=== PATIENT | male | born 1945 | race Caucasian/White ===

== ENCOUNTER 2020-11-15 21:47 | Emergency (ER) | payer MEDICARE, OTHER ==
[2020-11-15] MEDS ORDERED: Alum Hydrox/Mag Hydrox/Simeth 15 ML, Lidocaine 2% 15 ML PO ONE ×2 (21:55)
--- NOTE | 2020-11-15 22:01 | EDM.PDOC ---
ED HPI GENERAL MEDICAL PROBLEM - General Chief Complaint: Chest Pain Stated Complaint: MEDICAL [employer] Time Seen by Provider: 11/15/20 21:54 Source of Information: Reports: Patient, EMS History Limitations: Reports: No Limitations - History of Present Illness INITIAL COMMENTS - FREE TEXT/NARRATIVE: This is a 75-year-old male presenting to the ED via [facility] for evaluation of epigastric and retrosternal chest pain. The patient symptoms started around 1800 hrs. tonight. The patient reported eating a breakfast burrito from [employer] this morning, did not eat lunch and did not feel well to eat supper. 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 He still has significant bruising on the right upper arm and lower chest anteriorly from this procedure. The patient denies any shortness of breath. He did take 4 baby aspirin chewed at home prior to calling EMS. Upon arrival of EMS they did a twelve-lead EKG finding him to be in a paced rhythm. They did give him 2 sprays of nitro spray without any change in his symptoms. The patient states that the pain is kind of a gnawing epigastric pain with some nausea. The patient has not had any vomiting. He denies any fever, chills, lost the taste or smell, cough or shortness of breath, back pain, jaw pain or arm pain. The patient did reportedly try to take a little bit of bourbon to soothe his symptoms and that did not taste or go down very well so then he tried a little snoot of whiskey which also did not sit very well. Mid-Sternal Chest Pain Score (Numeric/FACES): 4 - Related Data Allergies Allergy/AdvReac Type Severity Reaction Status Date / Time amlodipine [From [facility]] Allergy Edema Verified 11/15/20 22:24 doxycycline Allergy Hives Verified 11/15/20 22:24 iodine Allergy Cannot Verified 11/15/20 21:58 Remember lisinopril Allergy Cough Verified 11/15/20 22:24 shellfish derived Allergy Nausea and Verified 11/15/20 22:24 Vomiting Sulfa (Sulfonamide Allergy Shortness Verified 11/15/20 21:58 Antibiotics) of Breath Home Meds: Home Meds Acetaminophen [Tylenol Extra Strength] 1,000 mg PO BEDTIME PRN 11/15/20 [History] Albuterol [Ventolin HFA] 2 puff INH Q4H PRN 11/15/20 [History] Amoxicillin 500 mg PO BID 11/15/20 [History] Aspirin [Halfprin] 81 mg PO DAILY 11/15/20 [History] Cetirizine [ZyrTEC] 10 mg PO DAILY 11/15/20 [History] Fluticasone Propionate [Flonase] 1 spray SAFIA DAILY PRN 11/15/20 [History] Losartan [Cozaar] 150 mg PO DAILY 11/15/20 [History] Montelukast [Singulair] 10 mg PO DAILY 11/15/20 [History] Nitroglycerin [Nitrostat] 0.4 mg SL ASDIRECTED 11/15/20 [History] Nystatin [Nystatin Oint] 1 applic TP 5XDAY 11/15/20 [History] Pantoprazole 20 mg PO BEDTIME #7 tab. 11/15/20 [Rx] Rosuvastatin [Crestor] 20 mg PO DAILY 11/15/20 [History] Ticagrelor [Brilinta] 90 mg PO BID 11/15/20 [History] allopurinoL [Zyloprim] 300 mg PO DAILY 11/15/20 [History] carvediloL [Coreg] 50 mg PO BID 11/15/20 [History] diphenhydrAMINE [Benadryl] 50 mg PO ASDIRECTED 11/15/20 [History] hydroCHLOROthiazide [Hydrochlorothiazide] 25 mg PO DAILY 11/15/20 [History] metroNIDAZOLE [Metrocream] 1 applic TP BID 11/15/20 [History] predniSONE [Prednisone] 60 mg PO DAILY 11/15/20 [History] ED ROS GENERAL - Review of Systems Review Of Systems: See Below Constitutional: Reports: No Symptoms HEENT: Reports: No Symptoms Respiratory: Reports: No Symptoms Cardiovascular: Reports: Chest Pain (Retrosternal and epigastric) Endocrine: Reports: No Symptoms GI/Abdominal: Reports: Abdominal Pain (Epigastric pain), Nausea. Denies: Constipation, Diarrhea, Vomiting : Reports: No Symptoms Musculoskeletal: Reports: No Symptoms Skin: Reports: No Symptoms Neurological: Reports: No Symptoms Psychiatric: Reports: No Symptoms Hematologic/Lymphatic: Reports: No Symptoms Immunologic: Reports: No Symptoms ED EXAM, GENERAL - Physical Exam Exam: See Below Exam Limited By: No Limitations General Appearance: Alert, No Apparent Distress Eye Exam: Bilateral Eye: EOMI, PERRL Throat/Mouth: Normal Inspection, Normal Oropharynx, Normal Voice, No Airway Compromise Head: Atraumatic, Normocephalic Neck: Normal Inspection, Supple, Non-Tender, Full Range of Motion. No: Carotid Bruit Respiratory/Chest: No Respiratory Distress, Lungs Clear, Normal Breath Sounds, Other (Significant ecchymosis in the lower anterior chest likely from the recent pacemaker placement 4 weeks ago.) Cardiovascular: Normal Peripheral Pulses, Regular Rate, Rhythm Peripheral Pulses: 2+: Radial (L), Radial (R), Posterior Tibial (L), Posterior Tibial (R) GI/Abdominal: Normal Bowel Sounds, Soft, Non-Tender. No: Guarding, Rebound Extremities: Normal Inspection, Normal Range of Motion, No Pedal Edema Neurological: Alert, Oriented, Normal Cognition, No Motor/Sensory Deficits Psychiatric: Normal Affect, Normal Mood Skin Exam: Warm, Dry, Ecchymosis (Significant ecchymosis of the left upper inner arm also secondary to the placement of the pacemaker 4 weeks ago.) Lymphatic: No Adenopathy #1 Interpretation EKG Date: 11/15/20 Time: 22:02 Rhythm: NSR (Ander sensed ventricular paced rhythm) Rate (Beats/Min): 65 Comparison: NA - No Prior EKG Course - Vital Signs Last Recorded V/S: Last Vital Signs Temp 36.4 C 11/15/20 21:53 Pulse 62 11/15/20 21:53 Resp 17 11/15/20 22:42 BP 101/55 L 11/15/20 22:42 Pulse Ox 95 11/15/20 22:42 - Orders/Labs/Meds Orders: Active Orders 24 hr Category Date Time Status EKG 12 Lead [EK] Routine Ther 11/15/20 21:55 Ordered Labs: Laboratory Tests 11/15/20 11/15/20 11/15/20 Range/Units 22:07 22:07 22:07 WBC 7.7 (4.5-11.0) K/uL RBC 4.19 L (4.30-5.90) M/uL Hgb 14.0 (12.0-15.0) g/dL Hct 40.9 (40.0-54.0) % MCV 98 (80-98) fL MCH 33 H (27-31) pg MCHC 34 (32-36) % Plt Count 119 L (150-400) K/uL Neut % (Auto) 54.1 (36-66) % Lymph % (Auto) 31.3 (24-44) % [place] % (Auto) 11.5 H (2-6) % Eos % (Auto) 2.5 (2-4) % Baso % (Auto) 0.6 (0-1) % D-Dimer, Quantitative 1437.41 H (0.0-500.0) ng/mL Sodium 134 L (140-148) mmol/L Potassium 3.5 L (3.6-5.2) mmol/L Chloride 100 (100-108) mmol/L Carbon Dioxide 26 (21-32) mmol/L Anion Gap 11.5 (5.0-14.0) mmol/L BUN 22 H (7-18) mg/dL Creatinine 1.3 (0.8-1.3) mg/dL Est Cr Clr Drug Dosing 50.68 mL/min Estimated GFR (MDRD) 54 L (>60) Glucose 96 (74-106) mg/dL Calcium 9.4 (8.5-10.1) mg/dL Magnesium 2.1 (1.8-2.4) mg/dL Total Bilirubin 0.8 (0.2-1.0) mg/dL AST 26 (15-37) U/L ALT 28 (12-78) U/L Alkaline Phosphatase 88 (46-116) U/L Troponin I < 0.017 (0.000-0.056) ng/mL C-Reactive Protein 0.15 (0.0-0.3) mg/dL Total Protein 6.9 (6.4-8.2) g/dL Albumin 3.6 (3.4-5.0) g/dL Globulin 3.3 (2.3-3.5) g/dL Albumin/Globulin Ratio 1.1 L (1.2-2.2) Lipase 221 (73-393) U/L Meds: Medications Discontinued Medications Generic Name Dose Route Start Last Admin Trade Name Freq PRN Reason Stop Dose Admin Al Hydroxide/Mg Hydroxide 15 0 ml 11/15/20 21:55 11/15/20 22:02 ml/ Lidocaine HCl 15 ml PO 11/15/20 21:56 30 ml ONETIME ONE Administration - Re-Assessments/Exams Free Text/Narrative Re-Assessment/Exam: 11/15/20 22:43 I reviewed the patient's labs showing a normal CBC with a leukocyte count of 7.7, hemoglobin of 14.0, hematocrit of 40.9, and platelet count of 219,000. The patient's comprehensive metabolic panel is unremarkable except for a BUN of 22 with a creatinine 1.3. Magnesium is 2.1, AST and ALT are normal, lipase is also normal at 221. C-reactive protein is normal at 0.15. Troponin is negative at less than 0.017. Patient received a GI cocktail with resolution of his symptoms. Symptoms do seem more consistent with an acute gastritis possibly a gastroenteritis given his normal white count and the patient's symptoms of not feeling very well today. Certainly this does not appear to be cardiac even though he recently had stents placed 3 months ago and a pacemaker 1 month ago. I will put the patient on a proton pump inhibitor like omeprazole or pantoprazole for the next 7 days to see if this helps with his symptoms. I do feel comfortable letting him go home at this time. Indications to return to the ED were discussed. Departure - Departure Time of Disposition: 22:45 Disposition: Home, Self-Care 01 Clinical Impression: Acute gastritis without bleeding Qualifiers: Gastritis type: superficial Qualified Code(s): K29.00 - Acute gastritis without bleeding Instructions: Gastritis, Adult, [id number] Referrals: PCP,Unknown [Primary Care Provider] - Forms: ED Department Discharge Care Plan Goals: It appears her symptoms today were arising from irritation of the stomach. You may be developing a viral stomach flu given your lack of appetite today or irritation of the stomach. I am recommending that we start you on pantoprazole which is an acid handle bender for the stomach. You will take it once daily for the next 7 days. Reassuringly, the work-up today did not show any evidence of cardiac involvement causing your symptoms. Certainly if anything changes feel free to return for reevaluation. Sepsis Event Note (ED) - Evaluation Sepsis Screening Result: No Definite Risk - Focused Exam Vital Signs: Vital Signs Temp Pulse Resp BP Pulse Ox 11/15/20 22:42 17 101/55 L 95 11/15/20 21:53 36.4 C 62 15 104/56 L 94 L - Problem List & Annotations (1) Acute gastritis without bleeding SNOMED Code(s): 12572460, 59109009 Code(s): K29.00 - ACUTE GASTRITIS WITHOUT BLEEDING Status: Acute Priority: High Current Visit: Yes Qualifiers: Gastritis type: superficial Qualified Code(s): K29.00 - Acute gastritis without bleeding - Problem List Review Problem List Initiated/Reviewed/Updated: Yes - My Orders Last 24 Hours: My Active Orders 11/15/20 21:55 EKG 12 Lead [EK] Routine - Assessment/Plan Last 24 Hours: My Active Orders 11/15/20 21:55 EKG 12 Lead [EK] Routine
[2020-11-15] MEDS ORDERED: Pantoprazole 40 MG Tab.CR PO STA (22:49)
== END 2020-11-15 23:00 | disposition home or self-care (01) ==
LOC: JP.ED 21:47
DX: K29.00 Acute gastritis without bleeding (principal); Z88.8 Allergy status to other drugs, medicaments and biological substances; Z88.2 Allergy status to sulfonamides; Z91.041 Radiographic dye allergy status; Z91.013 Allergy to seafood; Z79.82 Long term (current) use of aspirin; Z79.899 Other long term (current) drug therapy
CPT/HCPCS: 36415; 80053; 83690; 83735; 84484; 85025; 85379; 86140; 93005; 99284; A9270

== ENCOUNTER 2025-01-13 09:35 | Emergency (ER) | payer MEDICARE, OTHER ==
[2025-01-13 09:52] LABS: BASOPHILS ABSOLUTE AUTO 0.04 K/uL (0.00-0.10); BASOPHILS PERCENT AUTO 0.6 % (0.1-1.3); EOSINOPHILS ABSOLUTE AUTO 0.07 K/uL (0.00-0.40); EOSINOPHILS PERCENT AUTO 1.0 % (0.0-5.4); IMMATURE GRAN ABSOLUTE AUTO 0.05 K/uL (0.00-0.23); IMMATURE GRAN PERCENT AUTO 0.7 % (0.0-0.7); LYMPHOCYTES ABSOLUTE AUTO 0.94 K/uL (0.8-3.3); LYMPHOCYTES PERCENT AUTO 13.9 % (11.4-47.7); MONOCYTES ABSOLUTE AUTO 0.66 K/uL (0.20-0.90); MONOCYTES PERCENT AUTO 9.8 % (3.3-12.6); NEUTROPHILS ABSOLUTE AUTO 5.00 K/uL (1.0-7.6); NEUTROPHILS PERCENT AUTO 74.0 % (40.0-78.1); PLATELET COUNT,PLT 150 K/uL (130-375); RED BLOOD CELL COUNT 3.12 M/uL (4.14-5.76); WHITE BLOOD CELL COUNT,WBC 6.8 K/uL (3.2-11.0)
[2025-01-13 10:15] LABS: A/G RATIO 0.7 (1.2-2.2); ALANINE AMINOTRANSFERASE,ALT 20 U/L (12-78); ASPARTATE AMNIOTRANSFERASE,AST 25 U/L (15-37); BILIRUBIN TOTAL 0.8 mg/dL (0.2-1.0); BLOOD UREA NITROGEN,BUN 15 mg/dL (7-18); CARBON DIOXIDE,CO2 31 mmol/L (21-32); CHLORIDE,CL 99 mmol/L (100-108); CREATININE 0.7 mg/dL (0.8-1.3); EST CRCL DRUG DOSING (CG) 90.84 mL/min; ESTIMATED GFR 93 mL/min (>60); GLUCOSE RANDOM 92 mg/dL (74-106); PROTEIN TOTAL,TP 5.9 g/dL (6.4-8.2); SODIUM,NA 136 mmol/L (140-148); TROPONIN I HIGH SENSITIVITY 17.2 pg/mL (<=60.3)
[2025-01-13 10:24] LABS: POTASSIUM,K 2.8 mmol/L (3.6-5.2)
[2025-01-13 10:54] LABS: APPEARANCE,URINE CLEAR (CLEAR); GLUCOSE,URINE >=1000 mg/dL (NEGATIVE); OCCULT BLOOD,URINE NEGATIVE (NEGATIVE)
[2025-01-13 11:08] LABS: SQUAMOUS EPITHELIAL CELLS,UR RARE /HPF; UROTHELIAL CELLS,URINE NOT SEEN /HPF
[2025-01-13] MEDS: Potassium Chloride 20 MEQ Tab.ER PO ONE (11:13)
[2025-01-13] MEDS: Magnesium Sulfate 2 GM/50 mL 2 GM in Premix Bag 1 BAG IV ONE (11:14)
[2025-01-13] MEDS: Alum Hydrox/Mag Hydrox/Simeth 15 ML, Lidocaine 2% 15 ML PO ONE (11:58)
== END 2025-01-13 13:20 | disposition home or self-care (01) ==
LOC: JP.ED 09:35
DX: R07.89 Other chest pain (principal); I11.0 Hypertensive heart disease with heart failure; I50.9 Heart failure, unspecified; I25.2 Old myocardial infarction; J45.909 Unspecified asthma, uncomplicated; E66.9 Obesity, unspecified; Z68.23 Body mass index [BMI] 23.0-23.9, adult; Z88.1 Allergy status to other antibiotic agents; Z88.2 Allergy status to sulfonamides; Z88.8 Allergy status to other drugs, medicaments and biological substances; Z91.013 Allergy to seafood; Z79.82 Long term (current) use of aspirin; Z79.899 Other long term (current) drug therapy
CPT/HCPCS: 36415; 71046; 71046-26; 80053; 81001; 83605; 84484; 85025; 87086; 87088; 87186; 93005; 96365; 99285-25; A9270-GY; J3475